=== PATIENT | male | born 1935 | race Caucasian/White ===

== ENCOUNTER 2018-10-09 08:07 | Emergency (ER) | payer MEDICARE ==
[~2018-10-09] VITALS: Ht 167.6 cm; Wt 83.7 kg
--- NOTE | 2018-10-09 08:33 | NUR ---
PT AMBULATORY TO ROOM 43 W/ C/O GI BLEED STARTED 2 WKS AGO ON/OFF. PT ALSO STATES HE HAS HAD DIZZINESS/SOB. PT DENIES ANY CARDIAC HX. PT RESTING ON GURNEY. NADN. MONITORS APPLIED. WARM BLANKET PROVIDED. FAMILY AT BEDSIDE.
[2018-10-09 09:12] LABS: BASOPHILS # (AUTO) 0.02 x10^3/uL (0-0.1); BASOPHILS % (AUTO) 0 % (0-1); EOSINOPHILS # (AUTO) 0.09 x10^3/uL (0-0.4); EOSINOPHILS % (AUTO) 2 % (1-7); LYMPHOCYTES # (AUTO) 0.95 x10^3/uL (1-3.4); LYMPHOCYTES % (AUTO) 19 % (22-44); MD NO; MEAN CORPUSCULAR HEMOGLOBIN 27.4 pg (27.5-34.5); MEAN CORPUSCULAR HGB CONC 32.9 g/dL (33.2-36.2); MEAN CORPUSCULAR VOLUME 83.4 fL (81-97); MEAN PLATELET VOLUME 7.6 fL (7.4-10.4); MONOCYTES # (AUTO) 0.33 x10^3/uL (0.2-0.8); MONOCYTES % (AUTO) 7 % (2-9); NEUTROPHILS # (AUTO) 3.73 x10^3/uL (1.8-6.8); NEUTROPHILS % (AUTO) 73 % (42-75); PLATELET COUNT 249 x10^3/uL (130-400); RED CELL DISTRIBUTION WIDTH 15.1 % (9.4-14.8)
[2018-10-09 09:22] LABS: PROTHROMBIN TIME 10.5 Seconds (9.6-11.5)
[2018-10-09 09:28] LABS: ALANINE AMINOTRANSFERASE 25 U/L (12-78); ALBUMIN 3.7 g/dL (3.4-5.0); ANION GAP 6 mmol/L (5-15); CALCIUM 8.4 mg/dL (8.5-10.1); CHLORIDE 111 mmol/L (98-107)
[2018-10-09 09:31] LABS: ALKALINE PHOSPHATASE 103 U/L (45-117); BILIRUBIN,TOTAL 0.5 mg/dL (0.2-1.0); TOTAL PROTEIN 7.1 g/dL (6.4-8.2)
[2018-10-09 09:52] VITALS: BP 137/70
--- NOTE | 2018-10-09 09:52 | NUR ---
PT RESTING ON GURNEY. NADN. FLORES. PT CHART REVIEWED AND PLACED FOR RECHECK.
== END 2018-10-09 10:32 | disposition home or self-care (01) ==
LOC: ED 08:58
DX: K62.5 Hemorrhage of anus and rectum (principal); E03.9 Hypothyroidism, unspecified; I10 Essential (primary) hypertension; Z85.46 Personal history of malignant neoplasm of prostate
CPT/HCPCS: 36415; 80053; 85025; 85610; 86850; 86900; 93005; 99284

== ENCOUNTER 2018-10-29 09:13 | Day surgery (SDC) | payer MEDICARE ==
[~2018-10-29] VITALS: Ht 172.7 cm; Wt 81.3 kg
[2018-10-29] MEDS ORDERED: LACTATED RINGERS 1,000 ML IV SCH (09:47)
[2018-10-29] MEDS ORDERED: PANT40TA5 PO (09:49)
[2018-10-29] MEDS ORDERED: LOSA100T14 PO (09:49)
[2018-10-29] MEDS ORDERED: LEVO50TA5 PO (09:49)
[2018-10-29 10:15] VITALS: BP 155/84
[2018-10-29] MEDS ORDERED: PROPOFOL 10 MG/ML, 20ML ONE (10:36)
[2018-10-29] MEDS ORDERED: HALOPERIDOL 5 MG/ML IV PRN (11:30)
[2018-10-29] MEDS ORDERED: PROMETHAZINE 25 MG/ML, 1ML IV PRN (11:30)
[2018-10-29] MEDS ORDERED: ALBUTEROL SULFATE 2.5 MG/3 ML NPPB PRN (11:30)
[2018-10-29] MEDS ORDERED: LABETALOL 5MG/ML, 20ML IV PRN (11:30)
[2018-10-29] MEDS ORDERED: HYDROmorphone 2 MG/ML, 1ML IVPush PRN (11:30)
[2018-10-29] MEDS ORDERED: OXYcodone 5 MG/5 ML ORAL.SOL UDC PO PRN (11:30)
[2018-10-29] MEDS ORDERED: hydrALAzine 20 MG/ML, 1ML IV PRN (11:30)
[2018-10-29] MEDS ORDERED: FENTANYL PF 100 MCG/2ML IV PRN (11:30)
== END 2018-10-29 12:20 | disposition home or self-care (01) ==
LOC: OUT 09:13
PROVIDERS: ATTEND Internal Medicine
DX: K63.5 Polyp of colon (principal); K31.7 Polyp of stomach and duodenum; K21.0 Gastro-esophageal reflux disease with esophagitis; K44.9 Diaphragmatic hernia without obstruction or gangrene; K63.3 Ulcer of intestine; K57.30 Diverticulosis of large intestine without perforation or abscess without bleeding; K22.70 Barrett's esophagus without dysplasia; I10 Essential (primary) hypertension; Z98.890 Other specified postprocedural states
CPT/HCPCS: 43239; 45380; 45385; 88305; J2704; J7120

== ENCOUNTER → 2020-08-28 | Outpatient (CLI) | payer MEDICARE ==
[~2020-08-28] MED LIST: AMLO-150 PO; ASPI81TA45 PO; ATOR40TA78 PO; CARV12.52 PO; DOXA1TAB PO; LEVO50TA5 PO; LOSA100T14 PO; NITR0.4T28 SL; PANT40TA6 PO; POTA20TA6 PO; TICA90TA PO
[2020-08-28 07:44] LABS: ALBUMIN 3.5 g/dL (3.4-5.0); ANION GAP 6 mmol/L (5-15); CALCIUM 6.6 mg/dL (8.5-10.1); CHLORIDE 108 mmol/L (98-107)
[2020-08-28 07:53] LABS: % IRON SATURATION 32 % (20-55); ALANINE AMINOTRANSFERASE 26 U/L (12-78); ALKALINE PHOSPHATASE 139 U/L (45-117); BILIRUBIN,TOTAL 0.5 mg/dL (0.2-1.0); CHOL/HDL RATIO 3.6; CHOLESTEROL, TOTAL 100 mg/dL (140-239); CREATININE 1.02 mg/dL (0.7-1.3); HDL CHOL % 28 % (26-37); HDL CHOLESTEROL (DIRECT) 28 mg/dL (40-60); IRON LEVEL 89 mcg/dL (65-175); LDL CHOLESTEROL,CALCULATED 32 mg/dL (54-169); LDL/HDL RATIO 1.1 (0.5-3.0); TOTAL IRON BINDING CAPACITY 275 mcg/dL (250-450); TRIGLYCERIDES 202 mg/dL (50-200); VLDL CHOLESTEROL 40 mg/dL (0-25)
[2020-08-28 07:59] LABS: MICROSCOPIC AUTO
[2020-08-28 08:03] LABS: BASOPHILS % (AUTO) 1 % (0-1); EOSINOPHILS % (AUTO) 2 % (1-7); LYMPHOCYTES % (AUTO) 23 % (22-44); MEAN CORPUSCULAR HEMOGLOBIN 27.5 pg (27.5-34.5); MEAN CORPUSCULAR HGB CONC 32.8 g/dL (33.2-36.2); MEAN PLATELET VOLUME 8.1 fL (7.4-10.4); MONOCYTES % (AUTO) 8 % (2-9); NEUTROPHILS % (AUTO) 66 % (42-75); PLATELET COUNT 239 x10^3/uL (130-400); RED BLOOD COUNT 4.65 x10^6/uL (4.38-5.82); RED CELL DISTRIBUTION WIDTH 15.2 % (9.4-14.8)
[2020-08-28 08:15] LABS: MD NO
== END | disposition home or self-care (01) ==
LOC: LAB 07:07
PROVIDERS: ATTEND Family Medicine
DX: I10 Essential (primary) hypertension (principal); R73.01 Impaired fasting glucose; E61.1 Iron deficiency; E03.9 Hypothyroidism, unspecified
CPT/HCPCS: 36415; 80053; 80061; 81001; 83036; 83540; 83550; 84443; 85025

== ENCOUNTER 2020-09-04 17:07 | Outpatient (CLI) | payer MEDICARE | END 2020-09-04 23:59 | disposition home or self-care (01) | LOC: LAB 17:07 | PROVIDERS: ATTEND Family Medicine | DX: R31.9 Hematuria, unspecified (principal) | CPT/HCPCS: 88112 ==